=== PATIENT | male | born 1995 | race African-American/Black ===

== ENCOUNTER 2016-09-15 11:55 | Emergency (ER) | payer MEDICAID ==
[~2016-09-15] VITALS: Ht 162.6 cm; Wt 74.0 kg
[2016-09-15 12:18] VITALS: BP 129/72
[2016-09-15] MEDS ORDERED: ARIP15TA3 PO (12:22)
== END 2016-09-15 19:07 | disposition left against medical advice (07) ==
LOC: ER 12:29
DX: Z53.21 Procedure and treatment not carried out due to patient leaving prior to being seen by health care provider (principal)